=== PATIENT | male | born 1990 | race Caucasian/White ===

== ENCOUNTER 2018-04-02 16:11 | Emergency (ER) | payer SELFPAY ==
[2018-04-02 16:27] VITALS: BP 119/74; PULSE 84; RESP 16; TEMP 37.1; O2SAT 97
--- NOTE | 2018-04-02 17:00 | W.ED.GENAD ---
Discharge Plan Disposition Patient Disposition: HOME Condition: Stable Discharge Details Chief Complaint: Orthopedic Clinical Impression: Cast discomfort Primary Care Provider: NONE,NONE ED Provider: Ruslan Arambula Home Meds and New Rx's Prescriptions: Continue aspirin [Aspir-81] 81 mg Tablet,Delayed Release (Dr/Ec) 81 mg PO DAILY RF: 0 acetaminophen [Tylenol Extra Strength] 500 mg Tablet 1,500 mg PO BID RF: 0 gabapentin 300 mg Capsule 300 mg PO TID RF: 0 oxycodone 5 mg Tablet 10 mg PO Q4H RF: 0 Discharge Instructions Care Plan Goals: You had no evidence of blood clot on the ultrasound follow up with your orthopedist if you have severe worsening of pain or high fevers return to the emergency department Medical Decision Making 28 yo male who had a right ankle fx per him and had repair of this last week at [facility] [place] comes in with right latearl foot discomfort and numbness for a few days, denies fevers or chills. He has been getting the splint wet showering per pt. The splint appears very tight and not on great on exam, does have cold to touch right foot with intact sensation. I took down the splint and after removal he had warm foot and resolution of his symptoms. I suspect the cast was tight or from movement was impinging an artery. HAs no redness and wounds appear normal and not infected. HAs no evidence of dvt on bedside u/s. I applied a new splint, advised f/u as scheduled next week wit his ortho and return precautions given Differential Diagnosis cast problem, dvt, fx HPI General Mode of arrival: ambulatory. Date/Time Provider Initiated Documentation: 04/02/18 16:18. Limitations to Documentation: no limitations. Information obtained by: patient. History of Present Illness 28 year old M presents to the emergency department with the chief complaint of right foot discomfort, described as moderate, with intensity rated at 3. Quality is described as aching, No relieving factors improve symptom(s), No exacerbating factors reported . Related Data Home Medications Medication Instructions Recorded Confirmed acetaminophen [Tylenol Extra 1,500 mg PO BID 04/02/18 04/02/18 Strength] aspirin [Aspir-81] 81 mg PO DAILY 04/02/18 04/02/18 gabapentin 300 mg PO TID 04/02/18 04/02/18 oxycodone 10 mg PO Q4H 04/02/18 04/02/18 Allergies Allergy/AdvReac Type Severity Reaction Status Date / Time No Known Allergies Allergy Unverified 04/02/18 16:34 General Stated Complaint: Orthopedic NIKUNJ: 3 Review of Systems Review of Systems All systems reviewed & are unremarkable except as noted in HPI and below Constitutional Denies chills, Denies fever(s) and Denies weakness Eyes Denies loss of vision ENT Denies change in voice Cardiovascular Denies chest pain and Denies dyspnea Respiratory Denies dyspnea Gastrointestinal Denies abdominal pain, Denies nausea and Denies vomiting Genitourinary Denies dysuria Musculoskeletal Denies joint swelling Integumentary/Breasts Denies rash Neurologic Denies loss of vision and Denies weakness Psychiatric Denies depression Endocrine Denies cold intolerance and Denies heat intolerance Allergic/Immunologic Denies urticaria PFSH Social History Smoking/Tobacco Use Status: Current-Occasional Exam Const General: no acute distress Orientation: alert HENMT Head: normal to inspection Ears: external ears normal General nose exam: external nose normal Mouth: moist mucous membranes Eyes General: appearance normal, both eyes and all related structures Neck Neck: normal visual inspection Resp Effort & Inspection: normal respiratory effort and able to speak in complete sentences Cardio Rate: regular rate Skin General skin exam: no rashes or lesions noted Neuro General: alert and oriented x3 Psych Mental Status: mental status grossly normal Course Vital Signs Temperature 37.1 C 04/02/18 16:27 Pulse 84 04/02/18 16:27 Respiratory Rate 16 04/02/18 16:27 Blood Pressure 119/74 04/02/18 16:27 Pulse Oximetry 97 04/02/18 16:27 Temperature 37.1 C 04/02/18 16:27 Temperature Source Temporal Artery Scan 04/02/18 16:27 Pulse 84 04/02/18 16:27 Respiratory Rate 16 04/02/18 16:27 Respiratory Effort Non-Labored 04/02/18 16:32 Blood Pressure 119/74 04/02/18 16:27 Blood Pressure Position Supine 04/02/18 16:27 Pulse Oximetry 97 04/02/18 16:27 Oxygen Delivery Method Room Air 04/02/18 16:27 Oxygen Flow Rate 0 04/02/18 16:27 Pain Level 2 04/02/18 16:38
== END 2018-04-02 17:20 | disposition home or self-care (01) ==
LOC: ER 17:27
PROVIDERS: Emergency Provider Emergency Medicine
DX: M79.671 Pain in right foot (principal); R20.0 Anesthesia of skin; R23.8 Other skin changes; Y84.8 Other medical procedures as the cause of abnormal reaction of the patient, or of later complication, without mention of misadventure at the time of the procedure
CPT/HCPCS: 29125; 99283; 99281